=== PATIENT | male | born 1995 | race Caucasian/White ===

== ENCOUNTER 2019-11-06 15:19 | Emergency (ER) | payer BC ==
[2019-11-06 15:32] VITALS: BP 122/68; PULSE 110; RESP 16; TEMP 98.5
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
--- NOTE | 2019-11-06 15:57 | XR ---
Left wrist HISTORY: Trauma and pain 4 views the left wrist Postop changes are noted to the second and third phalanges. Bone mineralization within the left wrist , joint spaces and alignment are maintained. IMPRESSION: No acute fracture or dislocation.
== END 2019-11-06 16:08 | disposition home or self-care (01) ==
LOC: EC 15:19
DX: S63.502A Unspecified sprain of left wrist, initial encounter (principal); F17.200 Nicotine dependence, unspecified, uncomplicated; Z88.0 Allergy status to penicillin; V28.0XXA Motorcycle driver injured in noncollision transport accident in nontraffic accident, initial encounter; Y92.410 Unspecified street and highway as the place of occurrence of the external cause; Y93.55 Activity, bike riding
CPT/HCPCS: 99284

== ENCOUNTER → 2022-09-16 | Outpatient (CLI) | payer OTHER | END | disposition home or self-care (01) | LOC: LABWHC1 14:18 | PROVIDERS: ATTEND Nurse Practitioner | DX: Z77.018 Contact with and (suspected) exposure to other hazardous metals (principal) | CPT/HCPCS: 36415; 82108 ==